=== PATIENT | male | born 1990 | race Caucasian/White ===

== ENCOUNTER → 2016-09-23 | Outpatient (CLI) | payer OTHER ==
[~2016-09-23] MED LIST: ALEVE220 MG PO; CYMBALTA60 MG PO; ENALAPRIL MALEA20 MG PO; GLUCAGON EMERGEN1 MG SUB-Q; NOVOLOG100 UNIT/M SUB-Q; WELLBUTRIN XL300 M2 PO
== END | disposition disaster alternative care site (69) ==
LOC: GAMB 03:28
DX: E10.65 Type 1 diabetes mellitus with hyperglycemia (principal); F32.9 Major depressive disorder, single episode, unspecified; R63.1 Polydipsia; Z79.4 Long term (current) use of insulin; Z79.899 Other long term (current) drug therapy
CPT/HCPCS: A0425; A0429; J7030